=== PATIENT | male | born 1970 | race Caucasian/White ===

== ENCOUNTER 2017-01-18 08:16 | Observation (INO) ==
[2017-01-18] MEDS ORDERED: ASPIRIN PO STA (09:12)
[2017-01-18 09:50] LABS: INR 1.08; PROTIME 11.4 Seconds (9.2-11.7); PTT 29.9 Seconds (22.0-36.0)
[2017-01-18 09:52] LABS: BASO% 0.1 % (0.0-0.8); EOS# 0.01 X1000 (0.0-0.7); HEMATOCRIT 22.4 % (42.0-52.0); HEMOGLOBIN 6.9 g/dL (14.0-18.0); IMM GRAN# 0.27 X1000 (0.0-0.04); IMM GRAN% 1.3 % (0.0-0.5); LYMPH# 1.78 X1000 (1.2-3.4); LYMPH% 8.7 % (20.5-51.1); MANUAL DIFF NEEDED? NO; MCH 27.4 PG (27-31); MCHC 30.8 g/dL (33-37); MCV 88.9 FL (81-99); MONO# 1.17 X1000 (0.11-0.59); MONO% 5.7 % (1.7-9.3); MPV 9.6 FL (7.4-10.4); NEUT% 84.2 % (42.2-75.2); PLT 385 X1000 (130-400); RBC 2.52 XMIL (4.7-6.1)
[2017-01-18] MEDS ORDERED: ALBUTEROL NEB INH ONE (09:52)
[2017-01-18] MEDS ORDERED: LASIX IV ONE (09:52)
--- NOTE | 2017-01-18 09:59 | Diag Imaging Result Doc PS360 ---
EXAM: CHEST-PORTABLE HISTORY: sob TECHNIQUE: Upright AP COMPARISON: None. FINDINGS: The lungs are well expanded. The heart is not enlarged. The vessels are not distended. No pneumonia. No pleural effusions identified. There is a right jugular line. No pneumothorax. IMPRESSION: No acute abnormality. Electronically signed by Diaz Sandoval 01/18/2017 9:57 AM
[2017-01-18 10:16] LABS: ALBUMIN 3.6 g/dL (3.5-5.0); CALCIUM 9.1 mg/dL (8.8-10.2); MAGNESIUM 1.7 mg/dL (1.5-2.7); POTASSIUM 4.5 mmol/L (3.5-5.1); TOTAL BILIRUBIN 0.18 mg/dL (0.20-1.00); TOTAL PROTEIN 6.6 g/dL (6.3-8.3)
[2017-01-18 10:39] LABS: CK INDEX 1.7 (0.0-2.5); CK-MB 6.88 ng/mL (0.0-5.0)
[2017-01-18] MEDS ORDERED: ASPIRIN PO ONE (10:44)
[2017-01-18] MEDS ORDERED: ROCEPHIN 1 GM/NS 1 GM/50 ML IVPB IV ONE (10:50)
[2017-01-18 10:57] LABS: URINE CULTURE NEEDED? NO; URINE MICRO REVIEW NEEDED? NO; URINE SOURCE CLEAN CATCH
--- NOTE | 2017-01-18 11:01 | PROVIDER DOCUMENTATION ---
This chart was entered by Paulette Mcgill Scribe, acting as scribe for Bertin Lam MD. HPI-Respiratory General - General Chief Complaint: Shortness of Breath Stated Complaint: sob Time Seen by Provider: 01/18/17 08:46 Source: patient Allergies/Adverse Reactions: Patient Allergies Allergy/AdvReac Type Severity Reaction Status Date / Time clarithromycin [From Biaxin] Allergy Unknown Verified 01/18/17 08:57 Home Medications: Home Medication List Medication Instructions Recorded Confirmed Last Taken Type Amlodipine Besylate 10 mg PO DAILY 01/18/17 01/18/17 01/18/17 08:00 History Clonidine HCl 0.3 mg PO TID 01/18/17 01/18/17 01/18/17 08:00 History Folic Acid/Vit Bcomp,C [Dialyvite 1 tab PO DAILY 01/18/17 01/18/17 01/18/17 08: 00 History Tablet] Glipizide [Glipizide ER] 10 mg PO DAILY 01/18/17 01/18/17 01/18/17 08:00 History Multivitamin [Multivitamins] 1 cap PO DAILY 01/18/17 01/18/17 01/18/17 08:00 History Ranitidine [Zantac] 150 mg PO DAILY 01/18/17 01/18/17 01/18/17 08:00 History - History of Present Illness-Resp Nature of Presenting Problem: Pt is a 46 year old male who came to the ED with a cc of SOB. Pt reports that his SOB started thursday. Pt has a hx of dialysis on Thursday, Thursday, and Thursday. PT reports he has chest pain from his SOB. Pain is not radiating. Has not had any hemoptysis and has been fever free. Quality of Pain: reports: dull Severity in ED: reports: mild Onset/Duration: reports: 2 days ago Timing: reports: still present Context: denies: recent foreign travel Exposure: reports: unknown cause Cough Quality/Degree: reports: no cough Current Respiratory Medication Therapy: Initiated none Modifying Factors: improves with: nothing Associated Symptoms: reports: denies symptoms Similar Symptoms Previously?: No Recently seen or treated by another doctor?: No Review of Systems - Adult - REVIEW OF SYSTEMS - ADULT Constitutional: denies: chills, fever Eyes: reports: no symptoms reported Ears, Nose, Mouth & Throat: reports: no symptoms reported Cardiovascular: reports: chest pain, orthopnea. denies: irregular heart rate, syncope Respiratory: reports: shortness of breath, wheezing. denies: cough, hemoptysis Gastrointestinal: denies: diarrhea, nausea, vomiting Genitourinary: reports: no symptoms reported Musculoskeletal: reports: no symptoms reported Integumentary: reports: no symptoms reported Neurological: reports: no symptoms reported Psychiatric: reports: no symptoms reported Endocrine: reports: no symptoms reported Hematologic/Lymphatic: reports: no symptoms reported Allergic/Immunologic: reports: no symptoms reported All Other Systems: Reviewed and Negative Past History - Adult - PAST MEDICAL HISTORY-ADULT Review of Records: reports: Nursing Assessment Review Major Childhood Illnesses: reports: denies history Cardiovascular: reports: HTN Respiratory: reports: denies history Gastrointestinal: reports: denies history Obstetrical/Gynecological: reports: denies history Genitourinary: reports: dialysis Musculoskeletal: reports: denies history Neurological: reports: denies history Endocrine/Immune: reports: Diabetes Other Conditions: reports: denies history - IMMUNIZATION STATUS Childhood Immunizations: See Nurse Assessment Flu Vaccine: See Nurse Assessment - FAMILY HISTORY Family History: reviewed, not pertinent Physical Exam-General - PHYSICAL EXAM-ADULT Initial Vital Signs Reviewed: Yes - CONSTITUTIONAL General Appearance: appears well, alert, no apparent distress - EYES Eyes: PERRL/EOMI, pink conjunctivae - HEAD, EARS, NOSE, MOUTH & THROAT HENMT: normocephalic/atraumatic, moist mucous membranes - NECK Neck: non-tender, full range of motion - RESPIRATORY Respiratory: rales (at base of lungs.), wheezing - CARDIOVASCULAR Cardiovascular: normal peripheral pulses, regular rate, rhythm - GASTROINTESTINAL (ABDOMEN) Abdominal Exam: normal bowel sounds, non tender, soft - MUSCULOSKELETAL Back Exam: normal inspection, no CVA tenderness Extremity: normal range of motion, non-tender, normal gait - SKIN Integumentary: normal color, normal turgor - NEUROLOGIC Neurologic: grossly normal - PSYCHIATRIC Psych/Mental Status: normal mood/affect, normal thought content, normal thought process, oriented x 3 Progress - PLAN OF CARE/RESULTS Progress/Plan/Lab Results: Vital Signs - 8 hr 01/18/17 08:19 01/18/17 09:04 01/18/17 10:02 Temperature 98.4 F Pulse Rate 99 H 97 H 89 Respiratory Rate 24 19 18 Blood Pressure 184/84 187/100 O2 Sat by Pulse Oximetry 98 99 99 01/18/17 10:30 Temperature Pulse Rate 104 H Respiratory Rate 26 H Blood Pressure 173/86 O2 Sat by Pulse Oximetry 98 Laboratory Results - last 24 hr 01/18/17 01/18/17 01/18/17 08:40 08:40 08:40 WBC 20.46 H RBC 2.52 L Hgb 6.9 L Hct 22.4 L MCV 88.9 MCH 27.4 MCHC 30.8 L RDW Std Deviation 16.4 H Plt Count 385 MPV 9.6 Immature Gran % (Auto) 1.3 H Neut % (Auto) 84.2 H Lymph % (Auto) 8.7 L [place] % (Auto) 5.7 Eos % (Auto) 0.0 Baso % (Auto) 0.1 Immature Gran # (Auto) 0.27 H Neut # (Auto) 17.21 H Lymph # (Auto) 1.78 [place] # (Auto) 1.17 H Eos # (Auto) 0.01 Baso # (Auto) 0.02 PT INR PTT (Actin FS) Sodium 140 Potassium 4.5 Chloride 98 Carbon Dioxide 20 L Anion Gap 22 BUN 62 H Creatinine 8.1 H Estimated GFR/1.73 m2 7 BUN/Creatinine Ratio 8 Glucose 214 H Calculated Osmolality 303 Calcium 9.1 Magnesium 1.7 Total Bilirubin 0.18 L AST 27 ALT 36 Alkaline Phosphatase 92 Creatine Kinase 395 H Creatine Kinase Index 1.7 CK-MB (CK-2) 6.88 H Troponin T Mzn-L-Flteonvrjmg Pept 6653 H Total Protein 6.6 Albumin 3.6 Globulin 3.0 Albumin/Globulin Ratio 1.2 01/18/17 01/18/17 08:40 08:40 WBC RBC Hgb Hct MCV MCH MCHC RDW Std Deviation Plt Count MPV Immature Gran % (Auto) Neut % (Auto) Lymph % (Auto) [place] % (Auto) Eos % (Auto) Baso % (Auto) Immature Gran # (Auto) Neut # (Auto) Lymph # (Auto) [place] # (Auto) Eos # (Auto) Baso # (Auto) PT 11.4 INR 1.08 PTT (Actin FS) 29.9 Sodium Potassium Chloride Carbon Dioxide Anion Gap BUN Creatinine Estimated GFR/1.73 m2 BUN/Creatinine Ratio Glucose Calculated Osmolality Calcium Magnesium Total Bilirubin AST ALT Alkaline Phosphatase Creatine Kinase Creatine Kinase Index CK-MB (CK-2) Troponin T 0.041 Qdy-G-Yqgnpzfpcgo Pept Total Protein Albumin Globulin Albumin/Globulin Ratio Orders Category Date Time Status Cardiac Monitoring DIRECTED Care 01/18/17 09:12 Active Oxygen Therapy- ED Nursing DIRECTED Care 01/18/17 09:12 Active Saline Loc NOW Care 01/18/17 09:12 Active CHEST-PORTABLE [RAD] Stat Exams 01/18/17 09:15 Completed BLOOD CULTURE [BLDCUL] Stat Lab 01/18/17 10:50 Uncollected CBC WITH ELECTRONIC DIFF [HEME] Stat Lab 01/18/17 08:40 Completed CK PROFILE [SP CHEM] Stat Lab 01/18/17 08:40 Completed COMPREHENSIVE METABOLIC PANEL [CHEM] Stat Lab 01/18/17 08:40 Completed MAGNESIUM [CHEM] Stat Lab 01/18/17 08:40 Completed PRO B-NATRIURETIC PEPTIDE Stat Lab 01/18/17 08:40 Completed PROTIME WITH INR [COAG] Stat Lab 01/18/17 08:40 Completed PTT [COAG] Stat Lab 01/18/17 08:40 Completed TROPONIN T Stat Lab 01/18/17 08:40 Completed UA NIMS W/REFLEX CULT [URINALYSIS] Stat Lab 01/18/17 10:45 Ordered Albuterol [Albuterol Neb] Med 01/18/17 09:52 Discontinued 7.5 mg INH NOW ONE Aspirin Med 01/18/17 10:44 Discontinued 325 mg PO NOW ONE Aspirin Med 01/18/17 09:12 Discontinued 325 mg PO STAT STA CefTRIAXONE 1 GM/NS [Rocephin 1 gm/Ns] Med 01/18/17 10:50 Active 1 gm in 50 ml IV NOW Furosemide [Lasix] Med 01/18/17 09:52 Discontinued 20 mg IV NOW ONE Aerosol Treatments Routine Oth 01/18/17 09:53 Completed Aerosol Treatments Stat Oth 01/18/17 09:53 Completed EKG [EKG] Stat Ther 01/18/17 08:18 Ordered EKG [EKG] Stat Ther 01/18/17 09:12 Ordered Result Diagrams: 01/18/17 08:40 01/18/17 08:40 - REASSESSMENT Reassessment #1 Time Reassessed: 10:46 (Pt is a feeling better and made aware of treatment plan) Status: improving Reassessment Comment: patient diuresing well. - CONSULTS/PCP/HOSPITALIST Notification #1 *Consult/PCP/Hospitalist*: Hospitalist Time Discussed: 10:46 Consult Disposition: Admit, other (Spoke with Susi ([facility] for Hospitalist physician) made aware treatment renderd in ED and patient current stable condition.) Departure - Departure Time of Disposition Decision: 10:42 DIAGNOSIS: ESRD (end stage renal disease) Heart failure Qualifiers: Heart failure type: unspecified heart failure type Heart failure chronicity: unspecified heart failure chronicity Qualified Code(s): I50.9 - Heart failure, unspecified Disposition: ADMITTED INPATIENT 09 Certified Medical Emergency: Emergent Condition: Stable Referrals and Follow-Ups: Sixto Sofia MD [Primary Care Provider] - - Critical Care Note This patient required my direct & personal management of CC.: No This chart was documented by the indicated scribe, (Paulette Mcgill Scribe) and accurately reflects the services I performed and decisions made by me, Bertin Lam MD, as attested by the provider's signature.
[2017-01-18 11:09] LABS: BILIRUBIN URINE NEGATIVE (NEGATIVE); BLOOD URINE SMALL (NEGATIVE); COLOR YELLOW; GLUCOSE URINE 500 mg/dL (NEGATIVE); LEUKOCYTES URINE NEGATIVE (NEGATIVE); NITRITE URINE NEGATIVE (NEGATIVE); PROTEIN URINE >600 mg/dL (NEGATIVE); SP GRAVITY URINE 1.011; TURBIDITY URINE CLEAR (CLEAR); UROBILINOGEN URINE NORMAL (NORMAL)
[2017-01-18 11:10] LABS: UR EPITHELIAL CELLS <10 /HPF (<10); URINE BACTERIA NEGATIVE /HPF; URINE RBC <10 /HPF (<10); URINE WBC <10 /HPF (<10)
[2017-01-18] MEDS ORDERED: ZOFRAN IV PRN (11:45)
[2017-01-18] MEDS ORDERED: EPOGEN SUBQ ONE (11:53)
[2017-01-18 12:40] LABS: IRON SATURATION 39 %; TIBC 228 ug/dL; TOTAL IRON 89 ug/dL (53-167); UNBOUND IRON 139 ug/dL (112-346)
[2017-01-18] MEDS ORDERED: TESSALON PO PRN (13:38)
[2017-01-18] MEDS: CATAPRES PO SCH ×2 (13:44→17:21)
[2017-01-18] MEDS: TYLENOL PO PRN (14:12)
[2017-01-18] MEDS ORDERED: MORPHINE IV ONE (14:55)
[2017-01-18] MEDS ORDERED: ATIVAN IV ONE (14:55)
[2017-01-18] MEDS: XOPENEX NEB INH SCH ×3 (15:44→23:08)
[2017-01-18] MEDS: ATROVENT NEB INH SCH ×3 (15:44→23:08)
--- NOTE | 2017-01-18 15:46 | HISTORY AND PHYSICAL ---
PRIMARY CARE PROVIDER: Dr. Cabral. PRIMARY SUPERVISOR COFFEE: Dr. James. CHIEF COMPLAINT: Shortness of breath. HISTORY OF PRESENT ILLNESS: Mr. Imer Goncalves is a 46-year-old ill-appearing male who is morbidly obese with a history of end-stage renal disease that started most recently this Thursday, diabetes, GERD, hypertension. Mr. Goncalves states that he started this 1st dialysis Thursday, received dialysis and also on Thursday. By Thursday afternoon he was starting to have spells or shortness of breath. It worsened over the weekend. He states that he did have a productive cough that was yellow and white in color with associated burning in the chest. The shortness of breath was consistent at rest but worse with exertion. He had a subjective fever of 99.8 over the weekend. He denied chills, nausea or vomiting. He did complain of some diarrhea that was normal in color. Denied any blood in the urine or stool but no diarrhea since Thursday. Workup revealed that he had a low hemoglobin, hematocrit of 6.9 and 22.4. After discussion with nephrology the decision was made to hold on blood transfusion for now, will repeat later and if continues to drop will give blood at that time. Upon auscultation he did have a significant amount of rhonchi throughout all lobes, some mild expiratory wheezes. Chest x-ray was negative for any acute findings so will order a chest CT to further evaluate. He does have a white count of 20,000 but he is afebrile here. He also has an elevated proBNP so will go ahead and order an echocardiogram to further evaluate the heart. PAST MEDICAL HISTORY: 1. End-stage renal disease. Will be receiving dialysis Thursday, Thursday, Thursday but just started this past Thursday and received it 3 days in a row. 2. Chronic anemia secondary to end-stage renal disease. He has been receiving iron transfusions in clinic with erythropoietin during dialysis. 3. Diabetes mellitus type 2. 4. GERD. 5. Hypertension. SURGICAL HISTORY: Back surgery. SOCIAL HISTORY: Smokes a half pack per day for 20 years. Denies alcohol or illicit drug use. FAMILY HISTORY: Father with coronary artery disease, myocardial infarction, COPD. Grandmother with COPD. REVIEW OF SYSTEMS: Fourteen point review of systems were complete and all were negative for those mentioned above HPI. ALLERGIES: Clarithromycin. HOME MEDICATIONS: Amlodipine 10 mg p.o. daily, clonidine 0.3 mg p.o. t.i.d., Dialyvite vitamin 1 tab p.o. daily, glipizide 10 mg p.o. daily, multivitamin 1 tab p.o. daily, Zantac 150 mg p.o. daily, apparently has been getting erythropoietin and iron transfusion with dialysis. PHYSICAL EXAMINATION: VITAL SIGNS: Temperature 98.4 degrees, heart rate 104, respiratory rate 26, blood pressure 173/86, saturation 98% on 2 L, 5 feet 9 inches tall, 290 pounds, BMI 42.8. GENERAL: Right Goncalves is a 46-year-old male, he is in no acute distress and he is able answer questions appropriately. HEENT: Atraumatic, normocephalic. Pupils equal, round, reactive to light. Extraocular movements intact. Mucous membranes moist. NECK: No JVD or carotid bruits noted. CARDIOVASCULAR: S1, S2. Tachycardic rate rhythm, no rubs, gallops, murmurs. PULMONARY: Coarse rhonchi throughout anterior posteriorly on 2 L nasal cannula. No accessory muscle use or work of breathing noted at this time while at rest. GI: Soft, nontender, obese. Positive bowel sounds x4. EXTREMITIES: No edema noted. +2 dorsalis and radial pulses. SKIN: Warm, dry, intact now with a right chest dialysis catheter site without signs or symptoms of infection. NEUROLOGIC: A and O x4. Moves all extremities equally. LABORATORY DATA: White blood cells 20,000, hemoglobin 6.9, hematocrit 22.4, platelet count 385,000, INR 1.08, PTT is 29.9. Sodium 140, potassium 4.5, BUN 62, creatinine is 8.1, glucose 214, calcium 9.1, magnesium 1.7, bilirubin 0.18, AST 27, ALT 36, CK 395, troponin 0.041, proBNP 6653, albumin 3.6. Urinalysis greater than 600 protein, 500 glucose and small blood. IMAGING: Chest x-ray. Lungs well expanded. Heart not enlarged, vessels not distended, no pneumonia, no pleural effusions. Right jugular dialysis catheter intact, no pneumothorax. EKG rate 105, sinus tachycardia. ASSESSMENT AND PLAN: 1. Complaints of shortness of breath with history of tobacco abuse. Cessation was discussed. Will do Xopenex and Atrovent nebulizations, aggressive pulmonary toilet. Will go ahead and do Rocephin as he has elevated white blood cell count of 20,000 and chest x-ray did not reveal anything acute but will go ahead and get chest CT without contrast to further evaluate. 2. Leukocytosis. He is afebrile. Again will do chest, abdomen, pelvis CT to further evaluate source of infection. 3. End-stage renal disease. He has a new dialysis catheter in the right chest. He is followed by Dr. James. Will reconsult. He received dialysis on Thursday, and Thursday. 4. Chronic anemia versus acute blood loss anemia. Will do anemia studies and check for blood in the stool. There is a trace amount of blood in the urine but no ericka hematuria. Will hold off on blood transfusion for now unless hemoglobin, hematocrit continue to drop. Will recheck at 5 p.m. today holding on blood transfusion secondary to will be receiving kidney transplant workup soon. Patient states he has 3 family members that are willing to donate. 5. Diabetes mellitus type 2. Will do pattern blood glucoses, sliding scale insulin, renal diabetic diet. 6. Gastroesophageal reflux disease. Continue proton pump inhibitor. 7. Hypertension. Continue home medications. 8. Tobacco abuse. Cessation discussed. 9. Deep venous thrombosis prophylaxis. Will do SCDs as hemoglobin, hematocrit are low at this time. Dictated by ALEE Lamar for Gareth Adler MD cc: MD Gareth Overton MD Dr. Beler
[2017-01-18] MEDS ORDERED: TESSALON PO SCH ×2 (17:00→21:00)
[2017-01-18 17:05] LABS: HEMATOCRIT 22.6 % (42.0-52.0)
[2017-01-18] MEDS: HUMULIN R SUBQ SCH ×2 (17:21→20:17)
[2017-01-18] MEDS: MUCOMYST 20% INH SCH (19:16)
[2017-01-18] MEDS: PULMICORT INH SCH (19:16)
[2017-01-18] MEDS: PRILOSEC PO SCH (20:17)
[2017-01-18] MEDS: TESSALON PO SCH (20:17)
--- NOTE | 2017-01-18 20:22 | CONSULTATION ---
DATE OF CONSULTATION: 01/18/2017 REASON FOR ADMISSION: Shortness of breath, CHF exacerbation, end-stage renal disease. REASON FOR CONSULTATION: End-stage renal disease management, assist with medical management. CONSULTING PHYSICIAN: Dr. Beck. HISTORY OF PRESENT ILLNESS: This is a 46-year-old gentleman known to our service for end-stage renal disease that was diagnosed at the end of September and who has recently started dialysis this past week. He has undergone 3 dialysis treatments thus far. He had been uremic with worsening edema, anemia, fatigue, nausea, vomiting prior to starting. His last 3 treatments have been essentially uneventful except for some mild cramping during the 2nd treatment. The patient states that he came to the emergency room because he was having shortness of breath and difficulty breathing. He was noted to have a white count of 20.6, hemoglobin of 6.9, BUN of 62, creatinine of 8.1. His chest x-ray did not indicate any pneumonia. He was admitted for further workup and treatment for his shortness of breath. He states that today he has difficulty even walking across the room before becoming extremely short of breath. He denies any current chest pain but he did have some chest pain previously when his shortness of breath was worse. He has received some breathing treatments. PAST MEDICAL HISTORY: 1. End-stage renal disease. Newly started dialysis last week. 2. Hypertension. 3. Diabetes type 2. 4. Congestive heart failure. 5. Peripheral vascular disease. 6. Previous noncompliance with medical treatment. PAST SURGICAL HISTORY: Back surgery. He has a tunneled dialysis catheter. ALLERGIES: Clarithromycin. We also have listed in our chart outside of [facility] allergy to Ultram and Bactrim. HOME MEDICATIONS: Multivitamin, Dialyvite, amlodipine, Zantac, clonidine, glipizide. He receives erythropoietin in the clinic. FAMILY HISTORY: Diabetes, heart disease, colon cancer in his father. Hypertension in his mother. He does have a sibling that has had a stroke in the past. SOCIAL HISTORY: Smoker. He has tried quitting in the past. Denies ETOH or illicit drug use. REVIEW OF SYSTEMS: Chronic shortness of breath, severe fatigue with exertion, nausea, lower extremity edema. PHYSICAL EXAMINATION: Vital Signs: Temperature 98.4 degrees, pulse 104, respiratory rate 20, blood pressure 173/86. General: This is a middle-aged gentleman with . He is awake and alert. He is in no acute distress. HEENT: Normocephalic, atraumatic. Conjunctivae are pale. SAMY. Oral mucosa moist. Neck: Supple. It is thick. There is JVD noted. Cardiovascular: He has a regular rate and rhythm. There is no murmur or gallop appreciated. Pulmonary: He has expiratory wheeze bilaterally. He has no rales. He has no increased work of breathing. Abdomen: Obese, soft. Positive bowel sounds. : Not inspected. He is voiding. Extremities: He has 1 to 2+ pretibial edema. No clubbing or cyanosis. Integumentary: Skin is warm and dry. There is no rash or lesion noted. He has a tunneled dialysis catheter right upper chest wall with insertion site clean, dry, and intact. Neurologic: Grossly nonfocal. LAB DATA: WBC of 20.6, hemoglobin 6.9, hematocrit 23.4, and platelet count of 385,000. Sodium 140, potassium 4.5, CO2 20, BUN 62, creatinine 8.1. Chest x-ray with no acute process. ASSESSMENT AND PLAN: 1. End-stage renal disease management. He has already dialyzed 3 times this past week. We will plan to dialyze him in the morning to maintain his regular schedule. He continues to have some fluid on as we have not reached his dry weight yet and will continue to work challenging his weight until we reach that. 2. Anemia. We have asked that he be giving erythropoietin and to hold off transfusion of blood if at all possible as the patient is currently being worked up for transplant. His shortness of breath is both with and without exertion and although he is profoundly anemic, this is likely not the complete cause of his shortness of breath. 3. Electrolytes, acid-base balance. We will continue to treat this with dialysis. 4. Blood pressure. Will continue home medications. Thank you for the consult. Dictated by ALEE Mauricio for Shiv James MD cc: Shiv James MD
[2017-01-18] MEDS ORDERED: ZANTAC PO ONE (22:46)
[2017-01-19] MEDS: ATROVENT NEB INH SCH ×6 (03:18→22:57)
[2017-01-19] MEDS: XOPENEX NEB INH SCH ×6 (03:19→22:57)
[2017-01-19] MEDS ORDERED: ATROVENT NEB INH ONE (04:58)
[2017-01-19] MEDS ORDERED: ALBUTEROL NEB INH ONE (05:07)
[2017-01-19] MEDS: PRILOSEC PO SCH ×2 (06:01→21:19)
[2017-01-19] MEDS: HUMULIN R SUBQ SCH ×4 (06:12→21:19)
[2017-01-19] MEDS ORDERED: HEPARIN IV PRN (06:32)
[2017-01-19] MEDS ORDERED: NS 2,000 ML MISC PRN (06:32)
[2017-01-19] MEDS ORDERED: TIGHT: 0.2 ML/HR MISC PRN (06:32)
[2017-01-19 06:37] LABS: MANUAL DIFF NEEDED? NO
[2017-01-19 06:53] LABS: BASO% 0.1 % (0.0-0.8); EOS# 0.22 X1000 (0.0-0.7); EOS% 1.2 % (0.0-10.0); HEMATOCRIT 21.7 % (42.0-52.0); HEMOGLOBIN 6.7 g/dL (14.0-18.0); IMM GRAN# 0.28 X1000 (0.0-0.04); IMM GRAN% 1.5 % (0.0-0.5); LYMPH% 17.4 % (20.5-51.1); MCH 27.5 PG (27-31); MCHC 30.9 g/dL (33-37); MCV 88.9 FL (81-99); MONO# 1.58 X1000 (0.11-0.59); MONO% 8.6 % (1.7-9.3); MPV 8.9 FL (7.4-10.4); NEUT% 71.2 % (42.2-75.2); PLT 388 X1000 (130-400); RBC 2.44 XMIL (4.7-6.1)
[2017-01-19 07:01] LABS: INR 1.07; PROTIME 11.3 Seconds (9.2-11.7); PTT 28.2 Seconds (22.0-36.0)
[2017-01-19 07:10] LABS: ALBUMIN 3.4 g/dL (3.5-5.0); CALCIUM 8.1 mg/dL (8.8-10.2); POTASSIUM 4.2 mmol/L (3.5-5.1); TOTAL BILIRUBIN 0.17 mg/dL (0.20-1.00); TOTAL PROTEIN 5.5 g/dL (6.3-8.3)
--- NOTE | 2017-01-19 07:19 | EKG Report ---
Test Performed on : 01/18/2017 08:24:25 AM Test Reason : sob Blood Pressure : / mmHG Vent. Rate : 105 BPM Atrial Rate : 105 BPM P-R Int : 144 ms QRS Dur : 092 ms QT Int : 366 ms P-R-T Axes : 063 022 050 degrees QTc Int : 483 ms Sinus tachycardia. Otherwise normal ECG No previous ECGs available Unconfirmed Result
[2017-01-19] MEDS ORDERED: NS 2,000 ML ONE (07:51)
[2017-01-19] MEDS: MUCOMYST 20% INH SCH ×2 (08:07→19:16)
[2017-01-19] MEDS: PULMICORT INH SCH ×2 (08:08→19:16)
[2017-01-19] MEDS ORDERED: EPOGEN SUBQ SCH (09:00)
[2017-01-19] MEDS ORDERED: GLUCOTROL XL PO SCH (09:00)
--- NOTE | 2017-01-19 09:56 | PROGRESS NOTE ---
DATE: 01/19/2017 SUBJECTIVE: Mr. Goncalves is still having a cough with sputum production. Shortness of breath is minimal. No chills or fevers. OBJECTIVE: Vital Signs: Blood pressure 141/75, heart rate 92, respirations 21, afebrile. Intake 100 mL and output 1 liter. General: On physical exam, no acute distress. Skin: Warm and dry. Conjunctivae are pink. Pupils are equal. Oropharynx is clear. Neck: Supple. Neck veins are distended with hepatojugular reflux. Heart: Regular without gallops or murmurs. Lungs: Have equal breath sounds. No crackles or wheezes. Abdomen: Soft, obese, nontender. Bowel sounds present. Extremities: Trace edema. No clubbing or cyanosis. LABORATORY DATA: Sodium 142, potassium 4.2, chloride 99, bicarbonate 19, BUN 84, creatinine 9.4. Hemoglobin 6.7, white blood cell count 18.4. IMPRESSION AND PLAN: 1. Shortness of breath. He does have neck vein distention, but no obvious crackles on exam, and his chest x-ray was clear. We will test his dry weight again today. He does still have some edema and neck vein distention. Alternatively, he does have sputum production and leukocytosis, so we certainly could be dealing with bronchitis or other upper airway disease that is not visible on chest x-ray. It seems unlikely that this is related to his anemia. 2. Anemia. His hemoglobin has dropped dramatically over the last 6 months, and this is probably related to his renal dysfunction. I dosed him with erythropoietin on yesterday, and we will continue that. He has received 1 dose of intravenous Venofer as an outpatient, and I will complete that course now. If he is asymptomatic with regard to his anemia, then I would like to avoid transfusion. If he stays consistently below 7, we will have to proceed. My reasoning for this is he is very interested in transplantation, and exposure to other patient's blood may decrease the pool available of transplant donors. 3. Intravenous access. We are trying to preserve the veins in the left arm for fistula placement. I will have his intravenous line moved to the right arm. 4. Electrolytes/acid base, acceptable. 5. Hypertension, in target. cc: Shiv James MD
--- NOTE | 2017-01-19 10:38 | ECHO REPORT ---
ORDER DATE: 01/18/2017 MEASUREMENTS: Left ventricular end-diastolic diameter 5.4, septal thickness. 1.5, posterior wall thickness 1.3, left atrium 4.0, aortic root 3.8. SUMMARY: 1. Technically difficult study due to limited acoustic window quality. 2. Aortic, mitral, and tricuspid valves are without gross structural abnormality. Pulmonic valve is not well demonstrated. Peak gradient across the aortic valve is 12 mmHg. There is mild mitral regurgitation and trace tricuspid regurgitation. Estimated systolic PA pressure by Doppler is 50 mmHg. Aortic root is normal size. 3. Normal left ventricular chamber size with mild concentric left ventricular hypertrophy is suggested. The left ventricle is hyperdynamic, with estimated ejection fraction of at least 75%. No obvious regional wall motion abnormality can be appreciated. Doppler suggests grade 1 left ventricular diastolic dysfunction. The left atrium is borderline enlarged. Right atrium and right ventricle are normal in size with normal right ventricular systolic function. 4. Inferior vena cava not well demonstrated. CONCLUSIONS: 1. Technically difficult study. 2. Mild mitral regurgitation. 3. Trace tricuspid regurgitation with moderate pulmonary hypertension by Doppler. 4. Hyperdynamic left ventricle with estimated left ventricular ejection fraction of at least 75%. 5. Grade 1 left ventricular diastolic dysfunction. 6. Borderline aortic root enlargement. 7. Borderline left atrial enlargement. cc: MD Susi Scott CRNP
[2017-01-19] MEDS: CATAPRES PO SCH ×3 (13:21→17:08)
[2017-01-19] MEDS: NORVASC PO SCH (13:24)
[2017-01-19] MEDS: THERA M PLUS PO SCH (13:24)
[2017-01-19] MEDS: VENOFER 200 MG in NS 150 ML IV SCH (13:25)
--- NOTE | 2017-01-19 13:35 | PROGRESS NOTE ---
DATE: 01/19/2017 SUBJECTIVE: The patient was seen and examined in dialysis. Still complaining of having shortness of breath. He is catching his breath every few words. OBJECTIVE: Vital Signs: Blood pressure 141/75, pulse of 92, respiration 21, temperature of 97.6 degrees, saturations of 98% on room air. General Appearance: Obese, white male , in moderate distress due to shortness of breath. HEENT: Anicteric sclerae and conjunctivae. Neck: No JVD. No bruit. Cardiovascular: S1, S2. Normal rate and rhythm. No murmur, rubs, or gallops. Pulmonary: Crackles bilaterally. GI: Soft, nontender, nondistended. Normoactive bowel sounds. Musculoskeletal: No clubbing, cyanosis, or edema. DIAGNOSTIC DATA: Laboratory: White count 18.39, hemoglobin is 6.7, hematocrit of 21.7, platelets of 388,000. Chemistry: Sodium 142, potassium 4.2, chloride 99, bicarb 19, BUN 84, creatinine 9.4, glucose of 101. His echocardiogram was done yesterday with grade 1 diastolic dysfunction, EF about 75%. ASSESSMENT AND PLAN: A 46-year-old white male, admitted to the hospital for acute renal failure and up in dialysis. 1. End-stage renal disease. The patient has been getting dialysis for the past 4 days. This is his first time getting dialysis. Causes may be secondary to diabetes. The patient contributed it to his Prilosec that he is taking for his gastroesophageal reflux disease. Nephrology is following. 2. Anemia, probably of chronic disease. We wanted to give the patient 1 unit of red blood cell transfusion. The patient is not interested at this point to get a blood transfusion even though I explained to him it can help his breathing and it will not put stress on his heart. 3. Hypertension. Continue Norvasc and clonidine. 4. Shortness of breath and probably volume overload. Continue nebulizer treatment. Continue on dialysis. The patient does make very little urine so dialysis will not be very effective. 5. Diabetes type 2. We will continue sliding scale insulin for now. Will send A1c. Will recheck lab work in the morning. 6. Deep vein thrombosis prophylaxis. Put the patient on SCD for now, encourage ambulation. [facility]
[2017-01-19] MEDS: PATIENT'S OWN MED PO SCH (14:00)
[2017-01-19] MEDS: TESSALON PO SCH ×3 (14:00→21:20)
[2017-01-19] MEDS ORDERED: TESSALON PO SCH (21:00)
[2017-01-19] MEDS: TYLENOL PO PRN (23:22)
[2017-01-20] MEDS: XOPENEX NEB INH SCH ×2 (03:30→07:50)
[2017-01-20] MEDS: ATROVENT NEB INH SCH ×2 (03:30→07:50)
[2017-01-20 05:59] LABS: MANUAL DIFF NEEDED? NO
[2017-01-20] MEDS: PRILOSEC PO SCH (06:01)
[2017-01-20] MEDS: HUMULIN R SUBQ SCH (06:03)
[2017-01-20 06:24] LABS: HEMOGLOBIN A1C 5.9 % (4.8-6.0)
[2017-01-20 06:28] LABS: BASO% 0.1 % (0.0-0.8); EOS# 0.43 X1000 (0.0-0.7); EOS% 3.2 % (0.0-10.0); HEMATOCRIT 22.5 % (42.0-52.0); HEMOGLOBIN 6.8 g/dL (14.0-18.0); IMM GRAN# 0.16 X1000 (0.0-0.04); IMM GRAN% 1.2 % (0.0-0.5); LYMPH# 2.17 X1000 (1.2-3.4); MCHC 30.2 g/dL (33-37); MCV 89.3 FL (81-99); MONO# 1.51 X1000 (0.11-0.59); MONO% 11.2 % (1.7-9.3); MPV 9.3 FL (7.4-10.4); NEUT% 68.3 % (42.2-75.2); PLT 390 X1000 (130-400); RBC 2.52 XMIL (4.7-6.1)
[2017-01-20 06:50] LABS: CALCIUM 8.7 mg/dL (8.8-10.2); POTASSIUM 4.4 mmol/L (3.5-5.1)
[2017-01-20 07:24] VITALS: BP 160/88
[2017-01-20] MEDS: MUCOMYST 20% INH SCH (07:50)
[2017-01-20] MEDS: PULMICORT INH SCH (07:50)
[2017-01-20] MEDS: NORVASC PO SCH (08:13)
[2017-01-20] MEDS: THERA M PLUS PO SCH (08:13)
[2017-01-20] MEDS: VENOFER 200 MG in NS 150 ML IV SCH (08:13)
[2017-01-20] MEDS: CATAPRES PO SCH (08:14)
[2017-01-20] MEDS: PATIENT'S OWN MED PO SCH (08:14)
[2017-01-20] MEDS: TESSALON PO SCH (08:14)
--- NOTE | 2017-01-20 08:46 | PROGRESS NOTE ---
DATE: 01/20/2017 SUBJECTIVE: Mr. Goncalves is resting quietly on the side of the bed. He has just gotten up and walked back from going to the bathroom. He denies chest pain or increased work of breathing. States that he did have a severe cough after his walk. Had difficult time getting his breath; states he is doing better now. OBJECTIVE: His most recent vital signs are temperature 98.5 degrees, blood pressure 160/88, heart rate 98, respirations 20. He is on room air. Last recorded saturation 97%. He has had 360 in, 4150 out with 3.7 L off on dialysis and 400 in void. LABS: Sodium 141, potassium 4.4, chloride 98, CO2 23, BUN 70, creatinine 7.7, glucose 138. Anion gap 20, calcium 8.7, white count 13.53, hemoglobin 6.8, hematocrit 22.5. Platelet count 390,000. Blood cultures preliminary negative after 48 hours. PHYSICAL EXAMINATION: General: This is a 46-year-old white male resting on the side of the bed. He is in no acute distress. Skin: Warm and dry. HEENT: Normocephalic, atraumatic. Conjunctivae pale. He appears to have no JVD at sitting upright. Lungs: Clear to auscultation anteriorly. Equal excursion. Diminished posterior bases. Remains on O2. Abdomen: Large, obese, soft, nontender. Positive bowel sounds. Genitourinary: Not inspected. Patient is voiding adequate amount. Extremities: He has trace lower extremity edema. Tunnel catheter remains intact to the right upper chest wall. Neurological: Alert and oriented x3. ASSESSMENT AND PLAN: 1. End-stage renal disease. Patient has a tunnel catheter to the right upper chest wall. This remains dry and intact without redness or drainage. No indications for dialysis today. He is to resume his outpatient dialysis treatment per his prescription if discharged. 2. Electrolytes and acid-base balance. These are acceptable. 3. Anemia. This remains low. Hemoglobin continues low. He has received IV iron. He continues on erythropoietin. Again he is asymptomatic in regards with his anemia. We would like to avoid transfusion if at all possible. We would like to avoid transfusion secondary to interest in transplant and exposure to other persons blood for developing antigens and antibodies. 4. Shortness of breath. Unable to determine jugular venous distention at this time secondary to this patient sitting upright on the side of the bed. He does have productive sputum. He does have leukocytosis. We are dealing with bronchitis, upper airway disease. We have requested patient to get up and walk to check his increased activity which shortness of breath. He has done well. His nurse has called and stated that his oxygen saturation was 92-95% with respiratory walking with him. From our viewpoint, patient is able to be discharged with noted follow up at the dialysis unit in the a.m. per his routine treatment. I would to thank you for allowing us to follow with this patient. Seen, data reviewed, discussed with Betty Ronquillo on 01/20/17. I agree with the above assessment and plan of care. rg Dictated by ALEE Mendoza for Shiv James MD cc: ALEE Mendoza MD [facility]
--- NOTE | 2017-01-20 09:53 | PROGRESS NOTE ---
DATE: 01/20/2017 SUBJECTIVE: The patient is feeling better. He is walking around. His oxygen dropped down to about 92%. OBJECTIVE: Vital signs: Blood pressure 160/88, pulse of 98, respirations 20, temperature 98.5 degrees, sat of 97% on room air. General appearance: Morbidly obese, white male, in no acute distress. HEENT: Anicteric sclerae, clear conjunctivae. Neck: Supple. No JVD. No bruit. Cardiovascular: S1, S2. Normal rate and rhythm. No murmur, rubs, or gallops. Pulmonary: Crackles at the bases bilaterally. GI: Soft, nontender, nondistended. Normoactive bowel sounds. Musculoskeletal: No clubbing, cyanosis, or edema. LABORATORY: White count 13.53, hemoglobin 6.8, hematocrit 22.5, platelets 390. Chemistry: Sodium 141, potassium 4.4, chloride 98, bicarbonate 23, BUN 70, creatinine 7.7, glucose of 138. ASSESSMENT AND PLAN: This is a 46-year-old white male, admitted to the hospital for acute respiratory failure and end-stage renal disease: 1. Acute shortness of breath probably secondary to volume overload. Nephrology cleared for the patient to go home. He has had four treatments within the past five days, and he was scheduled for outpatient dialysis per Dr. James. 2. Anemia. The patient does not want any blood transfusions. Intravenous iron was given to the patient while he was in the hospital. I advised the patient to follow with his primary care provider so he can follow up with the hemoglobin check next week. The plan is we will discharge the patient home today.
--- NOTE | 2017-01-20 10:15 | DISCHARGE SUMMARY ---
ADMISSION DATE: 01/18/2017 DISCHARGE DATE: 01/20/2017 CONSULTATIONS: Dr. Shiv James with Nephrology PROCEDURES PERFORMED: 1. Echocardiogram showed an EF of 75%. 2. Chest x-ray showed well expanded lungs. The heart was not enlarged. Vessels were not distended. No pneumonia. No pleural effusions. DISCHARGE DIAGNOSES: 1. End stage renal disease on hemodialysis, followed by Dr. James. The patient was newly started on Thursday this past week. He had undergone hemodialysis on Thursday, and Thursday and will continue to follow on outpatient basis. 2. Anemia of chronic disease. However the patient is asymptomatic, and due to the patient wanting to have a transplant, we held off on transfusion. 3. Hypertension. Continue Norvasc and clonidine. 4. Shortness of breath secondary to volume overload, improved with hemodialysis. 5. Diabetes mellitus type 2. Continue home medications. HOSPITAL COURSE: Mr. Goncalves is a 46-year-old male, morbidly obese, with past medical history of end stage renal disease, that started hemodialysis this past Thursday, diabetes, GERD, hypertension. Mr. Goncalves received his first dialysis on Thursday and again on and Thursday. By Thursday afternoon, he started having spells of shortness of breath, it worsened over the weekend. Also complained of productive cough with yellow-white sputum. ED workup showed low hemoglobin and hematocrit of 6.9 and 22. After discussing with Nephrology, they decided to hold off on blood transfusions for now and continue to monitor serial hemoglobin and hematocrit secondary to the patient wanting a transplant. His chest x-ray was negative for anything acute. He did have a white count of 20,000 but afebrile, as well as an elevated ProBNP. The patient was admitted and continued on hemodialysis with Dr. James. The patient continues to use tobacco. This was discussed daily about cessation. He was also placed on bronchodilators and aggressive pulmonary toilet. His white count trended down. From a nephrology viewpoint, the patient is able to be discharged with followup in at the dialysis unit in the a.m. for his routine treatment. White count at the time of discharge was 13. BUN was 70, creatinine 7.7. His hemoglobin A1c was 5.9. Vital signs showed temperature 98.5, heart rate 98, respirations 20, blood pressure 160/80, O2 saturation is 97% on room air. DISCHARGE DIET: Renal. DISCHARGE MEDICATIONS: As per Dr. Landon Torres: 1. Norvasc 10 mg p.o. daily. 2. Pulmicort 0.5 mg inhaled b.i.d. 3. Clonidine 0.3 mg p.o. t.i.d. 4. Dialyvite tablet 1 each p.o. daily. 5. Glipizide ER 10 mg p.o. daily. 6. Xopenex 15 g inhaled q.4 hours p.r.n. 7. Multivitamin 1 each p.o. daily. 8. Zantac 150 mg p.o. daily. FOLLOWUP: The patient is being discharged to follow up at the clinic for his regularly scheduled dialysis in the a.m. The patient can return to the ED for any worsening of symptoms. He can return to his primary care physician in 1 to 2 weeks, Dr. Sixto Sofia. The patient can return to the ED for any worsening of symptoms. Discharge time is 30 minutes. Dictated by ALEE Anderson for Landon Torres MD cc: Sixto Sofia MD Addendum: I personally evaluated and examined the patient in conjunction to the BILLING SPEC and agreed with her assessments and disposition. JOSE
== END 2017-01-20 10:56 | disposition home or self-care (01) ==
LOC: ED 08:16 → INTOOBSV 12:32 → SUATTDRO 12:32 → 3N 12:32
PROVIDERS: ATTEND Internal Medicine